=== PATIENT | female | born 1980 | race Caucasian/White ===

== ENCOUNTER 2021-10-07 19:22 | Emergency (ER) | payer BC, MEDICAID ==
[~2021-10-07] VITALS: Ht 162.6 cm; Wt 77.0 kg
[2021-10-07] MEDS ORDERED: LIDO35.44 TP ×3 (19:44→20:33)
[2021-10-07] MEDS ORDERED: LIDO700A30 TP ×3 (19:44→20:33)
[2021-10-07] MEDS ORDERED: BO1 TP ×4 (19:44→21:09)
[2021-10-07 19:47] VITALS: BP 176/89
== END 2021-10-07 19:52 | disposition home or self-care (01) ==
LOC: ER 19:22
DX: L55.0 Sunburn of first degree (principal); R03.0 Elevated blood-pressure reading, without diagnosis of hypertension
CPT/HCPCS: 16020; 99282

== ENCOUNTER 2023-08-10 12:51 | Emergency (ER) | payer MEDICAID ==
[~2023-08-10] VITALS: Ht 162.6 cm; Wt 79.4 kg
[~2023-08-10 12:51] MED LIST: BO1 TP; LIDO35.421 TP; LIDO700A30 TP
[2023-08-10 13:11] VITALS: O2SAT 100
[2023-08-10] MEDS ORDERED: OFLO5DRO4 LEFT EAR (16:28)
[2023-08-10] MEDS ORDERED: AMOX-494 MT (16:28)
[2023-08-10] MEDS ORDERED: ISOP30DR11 LEFT EAR (17:04)
[2023-08-10 17:19] VITALS: BP 116/84; PULSE 84; RESP 18; TEMP 98.4
== END 2023-08-10 17:23 | disposition home or self-care (01) ==
LOC: ER 12:54
DX: H92.02 Otalgia, left ear (principal); H61.22 Impacted cerumen, left ear; J45.909 Unspecified asthma, uncomplicated; G43.909 Migraine, unspecified, not intractable, without status migrainosus; Z79.899 Other long term (current) drug therapy
CPT/HCPCS: 99281; 99283

== ENCOUNTER 2023-08-25 14:48 | Emergency (ER) | payer MEDICAID ==
[~2023-08-25] VITALS: Ht 162.6 cm; Wt 82.0 kg
[~2023-08-25 14:48] MED LIST changes: +AMOX-494 MT; +ISOP30DR11 LEFT EAR; +OFLO5DRO4 LEFT EAR
[2023-08-25 14:54] VITALS: O2SAT 98
[2023-08-25] MEDS ORDERED: ACET-2708 MT (15:50)
[2023-08-25] MEDS ORDERED: BO1 TP (15:50)
[2023-08-25] MEDS: ACETAMINOPHEN WITH CODEINE 300/30MG TABLET PO ONE (15:50)
[2023-08-25] MEDS: BACITRACIN ZINC OINT UDPKT TOP ONE (15:50)
[2023-08-25 16:17] VITALS: BP 122/82; PULSE 100; RESP 19; TEMP 98.2
== END 2023-08-25 16:38 | disposition home or self-care (01) ==
LOC: ER 15:01
DX: T24.101A Burn of first degree of unspecified site of right lower limb, except ankle and foot, initial encounter (principal); J45.909 Unspecified asthma, uncomplicated; G43.909 Migraine, unspecified, not intractable, without status migrainosus; E03.9 Hypothyroidism, unspecified; G89.11 Acute pain due to trauma; Z79.899 Other long term (current) drug therapy; X10.2XXA Contact with fats and cooking oils, initial encounter; Y93.89 Activity, other specified; Y92.89 Other specified places as the place of occurrence of the external cause; Y99.8 Other external cause status
CPT/HCPCS: 99283; Z7610 ×2

== ENCOUNTER 2023-12-03 13:12 | Emergency (ER) | payer MEDICAID, OTHER ==
[~2023-12-03] VITALS: Ht 175.3 cm; Wt 118.0 kg
[~2023-12-03 13:12] MED LIST changes: +ACET-2708 MT
[2023-12-03 13:15] VITALS: BP 70/50
== END 2023-12-03 13:21 ==
LOC: ER 13:12
DX: I46.9 Cardiac arrest, cause unspecified (principal); J45.909 Unspecified asthma, uncomplicated; Z79.899 Other long term (current) drug therapy; Z88.5 Allergy status to narcotic agent; Z88.1 Allergy status to other antibiotic agents; Z86.39 Personal history of other endocrine, nutritional and metabolic disease; Z86.59 Personal history of other mental and behavioral disorders
CPT/HCPCS: 82962; 92950; 99291